=== PATIENT | female | born 2000 | race Caucasian/White ===

== ENCOUNTER 2022-10-20 07:28 | Day surgery (SDC) | payer OTHER ==
[~2022-10-20] VITALS: Ht 160 cm; Wt 53.1 kg
[2022-10-20] MEDS ORDERED: LIDOCAINE 2% 100 MG/5 ML UJET TP ONE (08:11)
[2022-10-20] MEDS ORDERED: fentaNYL citrate 0.05 MG/ML VIAL ONE (08:11)
[2022-10-20] MEDS ORDERED: MIDAZOLAM 5 MG/5 ML VIAL ONE (08:11)
[2022-10-20] MEDS ORDERED: diphenhydrAMINE 50 MG/ML VIAL ONE (08:12)
[2022-10-20] MEDS ORDERED: fentaNYL citrate 0.05 MG/ML VIAL IVP ONE (08:40)
[2022-10-20] MEDS ORDERED: MIDAZOLAM 2 MG/2 ML VIAL IVP ONE (08:40)
== END 2022-10-20 10:13 | disposition home or self-care (01) ==
LOC: MDS 07:28 → MMU 07:28 → MDS 10:13
PROVIDERS: ATTEND Internal Medicine Gastroenterology
DX: Z12.11 Encounter for screening for malignant neoplasm of colon (principal); K51.00 Ulcerative (chronic) pancolitis without complications; K21.9 Gastro-esophageal reflux disease without esophagitis; Z79.899 Other long term (current) drug therapy; Z20.822 Contact with and (suspected) exposure to COVID-19
CPT/HCPCS: 45331; 87426; J2250; J3010; 88305; 88342; J1200